=== PATIENT | female | born 2000 | race Caucasian/White ===

== ENCOUNTER 2021-05-29 10:16 | Emergency (ER) | payer BC, SELFPAY ==
[2021-05-29 11:13] VITALS: BP 139/90; PULSE 73; RESP 20; TEMP 36.5; O2SAT 98; BMI 40.3
--- NOTE | 2021-05-29 11:42 | USR_ITS ---
PROCEDURE INFORMATION: Exam: US Pelvis, Transvaginal Exam date and time: 05/29/2021 11:42 AM Age: 21 years old Clinical indication: Pelvic pain; Additional info: Eval for pelvic cramps TECHNIQUE: Imaging protocol: Real-time transvaginal pelvic ultrasound with image documentation. Transvaginal imaging was used for better evaluation of the endometrium, adnexa, and/or cervix. COMPARISON: No relevant prior studies available. FINDINGS: Uterus: Uterus measures 6.6 x 3.2 by 4.5 cm. Endometrium measures 6 mm in diameter. Subcentimeter nabothian cysts. Right ovary/adnexa: Right ovary measures 3.2 x 2.2 x 3.1 cm. Right ovarian blood flow demonstrated. Left ovary/adnexa: Poorly visualized left ovary measures 3.9 x 2.3 x 1.4 cm. Intraperitoneal space: No significant free fluid. US/US transvaginal [id number] IMPRESSION: No acute sonographic abnormality in the visualized pelvis.
--- NOTE | 2021-05-29 12:00 | W.ED.GENADLT ---
HPI - General Adult General: Chief complaint: Urogenital-Female Stated complaint: HEAVY VAG BLEEDING AND PAIN, H/A, ABD PAIN Time Seen by Provider: 05/29/21 11:41 History of Present Illness: HPI narrative: Patient is a 21-year-old female with a history of regular periods who presents the emergency room with worsening pelvic cramps/lower abdominal pain over the last 2 months now with heavy bleeding x2 days. Patient tells me she has irregular periods. Most recently, her period started 2 days ago initially with passage of clots and that with heavy bleeding. Patient reports going through pads yesterday and 5 pads today. Patient denies any urinary symptoms, melena/medic easier. Patient reports that her cramps has never been this painful until recently. Patient recently moved here from [place] is looking to establish care with a OUTREACH REP provider. Patient denies any fever or chills, cough, runny nose sore throat. Patient reports nasal congestion secondary to seasonal allergy she currently has. No other abdominal complaints including nausea/vomiting, or diarrhea. Sexually active with 1 partner. Patient reports mild discharge. She does not think this discharge is different from her usual Onset: 2 months of pelvic cramps, 2 days of vaginal bleeding Duration:ongoing Location:home Severity:moderate Associated symptoms: Deny chest pain, dyspnea, nausea, rash, palpitations or vomiting Review of Systems Const: Denies: fever(s) or chills Eyes: Denies: change in vision ENMT: Denies: mouth pain Card: Denies: chest pain or palpitations Resp: Denies: dyspnea or non-productive cough GI: Denies: abdominal pain, nausea, vomiting or diarrhea : Reports: irregular period, pelvic pain and other (+vaginal bleeding and passage of clots); Denies: dysuria Musc: Denies: extremity pain Skin/Breast: Denies: rash or new lesions Neuro: Denies: weakness in extremities Psych: Reports: other (Normal mood) Dontae/Lymph: Denies: easy bruising PFSH ED PFSH: Medical History Allergic rhinitis due to allergen Social History Smoking and tobacco status: current every day smoker Alcohol intake: current Female Reproductive History: Date of last menstrual period: 04/10/21 Physical Exam Const: COMMON NORMALS: alert HENMT: COMMON NORMALS: atraumatic HEAD & SCALP: atraumatic MOUTH: moist mucous membranes not abnormal Eye: COMMON NORMALS: EOMs intact bilaterally and conjunctivae normal CONJUNCTIVA: Yes conjunctivae normal Neck/C-Spine: COMMON NORMALS: full ROM and supple Resp: COMMON NORMALS: normal respiratory effort and clear to auscultation bilaterally AUSCULTATION: clear to auscultation bilaterally Cardio: COMMON NORMALS: regular rate RATE: regular rate GI: COMMON NORMALS: Soft to palpation and non-tender PALPATION: Yes Soft to palpation : OTHER: Exam supervised by Adablerto REED. External genitalia wnl. No erythema around cervical os, os closed, no discharge, +mild clots of blood from the cervial os without any active bleeding or pooling of blood. No CMT, +mild L adnexal tenderness. Extremity: COMMON NORMALS: full ROM Neuro: SENSORIUM/ORIENTATION: Yes alert MOTOR EXAM: No Abnormal motor strength present and Other motor observations present (no focal motor deficits) Psych: COMMON NORMALS: speech normal SPEECH: Yes normal speech MOOD & AFFECT: Yes euthymic mood Course Vital Signs: Vital signs: Vital Signs Temperature 97.7 F 05/29/21 11:13 Pulse Rate 68 05/29/21 12:49 Respiratory Rate 16 05/29/21 12:49 Blood Pressure 107/69 05/29/21 12:49 Pulse Oximetry 100 05/29/21 12:49 MDM - General Adult MDM Narrative: Medical decision making narrative: 21-year-old female presenting to the emergency room with worsening pelvic cramps and heavy vaginal bleeding. On exam, patient has no signs of active vaginal bleeding. There is mild clot observed from the cervical os. Patient is otherwise noted to be mildly tachycardic on arrival has improved without any intervention she appears to be stable today at 13.7. Vaginal ultrasound is negative for any acute findings. HCG beta negative. I do not have any suspicion for acute active heavy vaginal period. UA is consistent with possible UTI given pelvic pain, will treat empirically I have given patient follow up with our protective services case worker to be seen by our outpatient OUTREACH REP provider. Patient aware of a call from our protective services case worker to schedule for appointment(s) and verbalizes understanding of the importance of following up. Rx tylenol PRN pain, zofran ODT and keyon PRN nausea/vomiting, cephalexin BID x 7 days for UTI Disposition: Discharge. Patient counseled regarding diagnostic impression, treatment plan. Patient given ED strict return precautions to return for continuation, worsening, or development of new symptoms. Instructed to f/u w/ PCP regarding symptoms today. Patient verbalized understanding. Lab Data: Labs: Lab Results 05/29/21 05/29/21 05/29/21 12:30 12:30 13:30 WBC 7.6 10^3/uL 10^3/ uL (4.0-10.0) RBC 4.82 10^6/uL 10^6 /uL (4.1-5.3) Hgb 13.7 g/dL g/dL (11.5-15.3) Hct 40.8 % % (37.0-47.0) MCV 84.6 fl fl (81-99) MCH 28.4 pg pg (28.0-34.0) MCHC 33.6 g/dL g/dL (30.0-36.0) RDW 12.5 % % (12.1-15.1) Plt Count 237 10^3/cmm 10^3 /cmm (130-400) MPV 10.8 fL H fL (7.4-10.4) Neut % (Auto) 66.7 % % Lymph % (Auto) 24.7 % % [place] % (Auto) 6.2 % % Eos % (Auto) 1.7 % % Baso % (Auto) 0.4 % % Neut # (Auto) 5.09 10^3/uL 10^3 /uL (1.8-7.7) Lymph # (Auto) 1.9 10^3/uL 10^3/ uL (0.8-4.8) [place] # (Auto) 0.5 10^3/uL 10^3/ uL (0.2-0.9) Eos # (Auto) 0.1 10^3/uL 10^3/ uL (0.0-0.8) Baso # (Auto) 0.0 10^3/uL 10^3/ uL (0.0-0.1) Nucleated RBC % (a uto) 0 % % Nucleated RBCs # 0.0 /100WBC /100W BC Sodium 139 mmol/L mmol/L (136-145) Potassium 4.1 mmol/L mmol/L (3.5-5.1) Chloride 104 mmol/L mmol/L (98-107) Carbon Dioxide 20 mmol/L L mmol/ L (22-29) Anion Gap 19.1 H (5-19) BUN 8 mg/dL mg/dL (6-20) Creatinine 0.7 mg/dL mg/dL (0.5-0.9) GFR Calculation 103.7 mL/min mL/m in (90-130) Glucose 96 mg/dL mg/dL (65-115) Calculated Osmolal ity 286 mOsm/kg mOsm/ kg (285-295) Calcium 10.1 mg/dL mg/dL (8.5-10.5) Total Bilirubin 0.6 mg/dL mg/dL (0.15-1.2) AST 47 U/L H U/L (0-32) ALT 35 U/L H U/L (0-33) Alkaline Phosphata se 78 IU/L IU/L (35-105) Total Protein 8.0 g/dL g/dL (6.6-8.7) Albumin 4.4 g/dL g/dL (3.5-5.2) Globulin 3.6 g/dL g/dL (1.3-4.6) Lipase 73 U/L H U/L (13-60) HCG, Qual Negative (Negative) Urine Color Urine Appearance Urine pH Ur Specific Gravit y Urine Protein Urine Glucose (UA) Urine Ketones Urine Blood Urine Nitrate Urine Bilirubin Prot Sulfosalicyli c Acd Urine Urobilinogen Ur Leukocyte Felicitas ase Urine RBC Urine WBC Ur Squamous Epith Cells Amorphous Sediment Urine Bacteria 05/29/21 05/29/21 13:30 13:45 WBC RBC Hgb Hct MCV MCH MCHC RDW Plt Count MPV Neut % (Auto) Lymph % (Auto) [place] % (Auto) Eos % (Auto) Baso % (Auto) Neut # (Auto) Lymph # (Auto) [place] # (Auto) Eos # (Auto) Baso # (Auto) Nucleated RBC % (a uto) Nucleated RBCs # Sodium Potassium Chloride Carbon Dioxide Anion Gap BUN Creatinine GFR Calculation Glucose Calculated Osmolal ity Calcium Total Bilirubin AST ALT Alkaline Phosphata se Total Protein Albumin Globulin Lipase HCG, Qual Negative (Negative) Urine Color Dark yellow (Yellow) Urine Appearance Hazy A (CLEAR) Urine pH 8 H (5-7) Ur Specific Gravit y 1.010 (1.005-1.030) Urine Protein Neg (Negative) Urine Glucose (UA) Norm (Normal) Urine Ketones 1+ H (Negative) Urine Blood 3+ H (Negative) Urine Nitrate Negative (Negative) Urine Bilirubin 1+ H (Negative) Prot Sulfosalicyli c Acd Positive (Negative) Urine Urobilinogen 4 mg/dL H mg/dL (Negative) Ur Leukocyte Felicitas ase Trace H (Negative) Urine RBC 15-25 /hpf H /hpf (0-2) Urine WBC 5-10 /hpf H /hpf (0-5) Ur Squamous Epith Cells 5-10 /hpf H /hpf (0-5) Amorphous Sediment Not Reportable Urine Bacteria 1+ /hpf H /hpf (NONE) Imaging Data^: Other Imaging: Radiologist's impression: [address] [id number] ReportSigned Patient: Nasima Turner #: [id number]: 2000Acct#:[id number]/Sex: 21 / FADM Date: 05/29/21Loc: ERRoom/Bed:Attending Dr: Ordering Provider/Ordering MD: Mojgan Mix MD Date of Service: 05/29/21 Procedure(s): US transvaginal [id number] Accession Number(s): [id number] Report Number: [id number] PROCEDURE INFORMATION: Exam: US Pelvis, Transvaginal Exam date and time: 05/29/2021 11:42 AM Age: 21 years old Clinical indication: Pelvic pain; Additional info: Eval for pelvic cramps TECHNIQUE: Imaging protocol: Real-time transvaginal pelvic ultrasound with image documentation. Transvaginal imaging was used for better evaluation of the endometrium, adnexa, and/or cervix. COMPARISON: No relevant prior studies available. FINDINGS: Uterus: Uterus measures 6.6 x 3.2 by 4.5 cm. Endometrium measures 6 mm in diameter. Subcentimeter nabothian cysts. Right ovary/adnexa: Right ovary measures 3.2 x 2.2 x 3.1 cm. Right ovarian blood flow demonstrated. Left ovary/adnexa: Poorly visualized left ovary measures 3.9 x 2.3 x 1.4 cm. Intraperitoneal space: No significant free fluid. US/US transvaginal [id number] IMPRESSION: No acute sonographic abnormality in the visualized pelvis. Dictated By:Travis Patel MDSigned By:Travis Patel MDSigned Date/Time:05/29/21 1355DD/ 1142 Discharge Plan Discharge Patient Disposition: Home Clinical Impression: Pelvic cramping, Abnormal vaginal bleeding, UTI (urinary tract infection) Condition: Stable Prescriptions: New Zofran 4 mg tablet 4 mg PO TID PRN (Reason: nausea and vomiting) 4 Days Qty: 12 RF: 0 acetaminophen 500 mg tablet 500 mg PO Q6H PRN (Reason: pain) 5 Days Qty: 20 RF: 0 keyon extract 250 mg capsule 250 mg PO QID PRN (Reason: nausea and vomiting) 8 Days Qty: 32 RF: 0 cephalexin 500 mg capsule 500 mg PO BID 7 Days Qty: 14 RF: 0 Discharge Orders: Discharge ED (Routine); Ordered 05/29/21 Ordered By: Mojgan Mix Discharge Diet: Advance as tolerated Discharge Activity: Increase activity as tolerated Patient Instructions: Abnormal (Dysfunctional) Uterine Bleeding (ED) Activity Restrictions/Additional Instructions: Our protective services case worker will have you follow-up with vaginal bleeding and cramps in the next few days. You would be expected to have a phone call with our protective services case worker who will put you on the schedule. Please come back to the emergency room any significant nausea/vomiting, fever/chill, diarrhea worsening abdominal pain, or any significantly worsening of cramps or vaginal bleeding Coding Level of Care Code ED [facility] Fwd Exam Comprehensive
[2021-05-29] MEDS: metoclopramide 5 mg/mL SDV 2 mL IVP (12:44)
[2021-05-29] MEDS: acetaminophen 500 mg Tablet 1000 MG PO (12:44)
[2021-05-29 12:48] LABS: Basophils % 0.4 %; Eosinophils # 0.1 10^3/uL (0.0-0.8); Eosinophils % 1.7 %; Hematocrit 40.8 % (37.0-47.0); Hemoglobin 13.7 g/dL (11.5-15.3); Lymphocytes # 1.9 10^3/uL (0.8-4.8); Lymphocytes % 24.7 %; Mean Corpuscular HGB Conc 33.6 g/dL (30.0-36.0); Mean Corpuscular Hemoglobin 28.4 pg (28.0-34.0); Mean Corpuscular Volume 84.6 fl (81-99); Mean Platelet Volume 10.8 fL (7.4-10.4); Monocytes # 0.5 10^3/uL (0.2-0.9); Monocytes % 6.2 %; Neutrophils # 5.09 10^3/uL (1.8-7.7); Neutrophils % 66.7 %; Nucleated Red Blood Cells % 0 %; Platelet Count 237 10^3/cmm (130-400); Red Blood Count 4.82 10^6/uL (4.1-5.3); Red Cell Distribution Width 12.5 % (12.1-15.1); White Blood Count 7.6 10^3/uL (4.0-10.0)
[2021-05-29 12:49] VITALS: BP 107/69; PULSE 68; RESP 16; O2SAT 100
[2021-05-29 13:05] LABS: Alanine Aminotransferase 35 U/L (0-33); Albumin Level 4.4 g/dL (3.5-5.2); Alkaline Phosphatase 78 IU/L (35-105); Anion Gap 19.1 (5-19); Aspartate Amino Transferase 47 U/L (0-32); Blood Urea Nitrogen 8 mg/dL (6-20); Calcium 10.1 mg/dL (8.5-10.5); Carbon Dioxide 20 mmol/L (22-29); Chloride 104 mmol/L (98-107); Globulin 3.6 g/dL (1.3-4.6); Glomerular Filtration Rate 103.7 mL/min (90-130); Glucose 96 mg/dL (65-115); Lipase 73 U/L (13-60); Osmolality Calculated 286 mOsm/kg (285-295); Potassium 4.1 mmol/L (3.5-5.1); Sodium 139 mmol/L (136-145); Total Bilirubin 0.6 mg/dL (0.15-1.2)
[2021-05-29 13:42] LABS: HCG Qualitative Urine. Negative (Negative)
[2021-05-29 13:54] LABS: Bilirubin Urine 1+ (Negative); Blood Urine 3+ (Negative); Glucose Urine UA Norm (Normal); Ketones Urine 1+ (Negative); Nitrate Urine Negative (Negative); Protein Urine Neg (Negative); Sulfosalicylic Acid Urine Positive (Negative); Urine Appearance Hazy (CLEAR); Urine Color Dark Yellow (Yellow); Urobilinogen Urine 4 mg/dL (Negative); pH Urine 8 (5-7)
[2021-05-29 13:55] LABS: Add Urine Culture? Yes; Add Urine Microscopic? YES; Bacteria Urine 1+ /hpf; Leukocyte Esterase Urine Trace (Negative); RBC Urine 15-25 /hpf (0-2)
[2021-05-29 14:00] VITALS: BP 128/70; PULSE 68; RESP 16; O2SAT 98
[2021-05-29 14:07] LABS: HCG, Serum Qual Negative (Negative)
--- NOTE | 2021-05-30 08:57 | DCPLANNER ---
Addendum entered by Apryl Smyth 07/29/21 09:08: Patient had an appointment scheduled with [facility] - appointment was cancelled. Addendum entered by Apryl Smyth 06/17/21 08:17: Patient has a follow up appointment scheduled for July at 3:[address] Collado at [facility]. Clinic will call patient with appointment information. Original Note: pool manager had message to schedule a follow up appointment for patient with [facility]. pool manager called the [facility], gave clinic patients information. Patients information will be printed and reviewed. Clinic will call patient with appointment information.
== END 2021-05-29 14:26 | disposition home or self-care (01) ==
PROVIDERS: Emergency Medicine; Nurse Practitioner Family; Emergency Provider Emergency Medicine
DX: N93.9 Abnormal uterine and vaginal bleeding, unspecified (principal); R10.2 Pelvic and perineal pain; N39.0 Urinary tract infection, site not specified; F17.210 Nicotine dependence, cigarettes, uncomplicated
CPT/HCPCS: 36415; 76830; 80053; 81001; 81025; 83690; 84703; 85025; 87086; 96374; 99284; J2765

== ENCOUNTER 2021-10-08 09:49 | Emergency (ER) | payer SELFPAY ==
--- NOTE | 2021-10-08 10:01 | W.ED.GENADLT ---
HPI - General Adult General: Chief complaint: Back Pain/Injury Stated complaint: Pain everywhere, SOB, Fever, Cough Time Seen by Provider: 10/08/21 09:53 Source: patient Mode of arrival: ambulatory Limitations: no limitations History of Present Illness: 21-year-old female presents emergency room complaining of generalized pain everywhere shortness of breath cough she has not had any diarrhea. She localizes the worst of her pain into her low back however does not particularly radiate in a radicular fashion to her extremities she denies any dysuria urgency or frequency she has a little bit of cough and shortness of breath no cough has been nonproductive. No chest pain. No vomiting or diarrhea. Onset (ago): minute(s) Severity: moderate Quality: aching Pain Consistency: constant Associated symptoms: Deny chest pain, confusion, cough, diaphoresis, decreased appetite, dyspnea, fevers/chills, headache(s), malaise, nausea, rash, palpitations, seizures, short of breath, syncope, vomiting or weakness Treatments prior to arrival: none Review of Systems Const: Reports: fever(s), chills, change in appetite and fatigue; Denies: malaise or diaphoresis ENMT: Denies: throat pain, ear or mastoid pain, nasal discharge or nasal congestion Card: Denies: chest pain, palpitations or syncope Resp: Denies: dyspnea GI: Denies: abdominal pain, nausea or vomiting : Denies: flank pain, difficulty voiding, dysuria, urinary frequency or urinary urgency Skin/Breast: Denies: rash Neuro: Denies: headache(s) or confusion PFS ED PFSH: Medical History Allergic rhinitis due to allergen Social History Smoking and tobacco status: current every day smoker Alcohol intake: current Female Reproductive History: Date of last menstrual period: 04/10/21 Physical Exam Const: GENERAL APPEARANCE: cooperative and comfortable ORIENTATION/CONSCIOUSNESS: Yes awake, Yes oriented to person, Yes oriented to place and Yes oriented to time HENMT: COMMON NORMALS: normocephalic, atraumatic and hearing grossly normal bilaterally HEAD & SCALP: normocephalic and atraumatic Neck/C-Spine: COMMON NORMALS: no JVD Resp: COMMON NORMALS: normal respiratory effort, No retractions, No use of accessory muscles and clear to auscultation bilaterally AUSCULTATION: clear to auscultation bilaterally Cardio: COMMON NORMALS: no JVD, regular rate, regular rhythm and No murmurs present (Cardio) RATE: regular rate RHYTHM: regular rhythm GI: COMMON NORMALS: No hepatosplenomegaly present AUSCULTATION: Yes normoactive bowel sounds PALPATION: Yes Tenderness to palpation present (GI) (Mild diffuse), No Guarding due to palpation present (GI) and Yes No hepatosplenomegaly present Extremity: COMMON NORMALS: normal to inspection, capillary refill normal, no clubbing, cyanosis or edema, no calf tenderness and no pedal edema OTHER: Straight leg raising is negative Neuro: SENSORIUM/ORIENTATION: Yes oriented to person, Yes oriented to place and Yes oriented to time Skin: COMMON NORMALS: no rashes or lesions noted GENERAL SKIN EXAM: no rashes or lesions noted Course Vital Signs: Vital signs: Vital Signs Temperature 100.5 F H 10/08/21 11:30 Pulse Rate 106 H 10/08/21 15:49 Respiratory Rate 20 H 10/08/21 15:49 Blood Pressure 132/86 10/08/21 15:49 Pulse Oximetry 97 10/08/21 15:49 [facility] - General Adult Medical Decision Making Exam is normal. Beta-hCG came back as positive serum quant done was in the 80s. CT of the abdomen was canceled ultrasound was done instead. Ultrasound is unremarkable patient is feeling much better COVID swab and respiratory antigen panel was negative. Chest x-ray was also negative. Patient declined vaginal ultrasound. given her beta-hCG is so low, it is unlikely we would see anything intrauterine. Organ to go ahead and discharge the patient home with suspect she may have a little viral infection she is feeling much better. We will help her get set up for a repeat beta-hCG in 5 days and establish with a primary care order placed with case management. Medical Records I reviewed the patient's medical records. Lab Data I reviewed the patient's lab results. : 10/08/21 11:39 10/08/21 11:39 Radiology Impressions Chest X-Ray 10/08/21 11:42 IMPRESSION: No acute findings. Abdomen Ultrasound 10/08/21 12:45 IMPRESSION: Cholecystectomy, negative for acute abnormality. Laboratory Results WBC 7.8 10^3/uL (4.0-10.0) 10/08/21 11:39 RBC 5.24 10^6/uL (4.1-5.3) 10/08/21 11:39 Hgb 14.6 g/dL (11.5-15.3) 10/08/21 11:39 Hct 43.0 % (37.0-47.0) 10/08/21 11:39 MCV 82.1 fl (81-99) 10/08/21 11:39 MCH 27.9 pg (28.0-34.0) L 10/08/21 11:39 MCHC 34.0 g/dL (30.0-36.0) 10/08/21 11:39 RDW 12.3 % (12.1-15.1) 10/08/21 11:39 Plt Count 251 10^3/cmm (130-400) 10/08/21 11:39 MPV 10.8 fL (7.4-10.4) H 10/08/21 11:39 Neut % (Auto) 82.0 % 10/08/21 11:39 Lymph % (Auto) 11.2 % 10/08/21 11:39 [place] % (Auto) 5.9 % 10/08/21 11:39 Eos % (Auto) 0.1 % 10/08/21 11:39 Baso % (Auto) 0.5 % 10/08/21 11:39 Neut # (Auto) 6.40 10^3/uL (1.8-7.7) 10/08/21 11:39 Lymph # (Auto) 0.9 10^3/uL (0.8-4.8) 10/08/21 11:39 [place] # (Auto) 0.5 10^3/uL (0.2-0.9) 10/08/21 11:39 Eos # (Auto) 0.0 10^3/uL (0.0-0.8) 10/08/21 11:39 Baso # (Auto) 0.0 10^3/uL (0.0-0.1) 10/08/21 11:39 Nucleated RBC % (auto) 0 % 10/08/21 11:39 Nucleated RBCs # 0.0 /100WBC 10/08/21 11:39 Sodium 134 mmol/L (136-145) L 10/08/21 11:39 Potassium 3.6 mmol/L (3.5-5.1) 10/08/21 11:39 Chloride 98 mmol/L (98-107) 10/08/21 11:39 Carbon Dioxide 21 mmol/L (22-29) L 10/08/21 11:39 Anion Gap 18.6 (5-19) 10/08/21 11:39 BUN 6 mg/dL (6-20) 10/08/21 11:39 Creatinine 0.9 mg/dL (0.5-0.9) 10/08/21 11:39 GFR Calculation 77.6 mL/min (90-130) L 10/08/21 11:39 Glucose 104 mg/dL (65-115) 10/08/21 11:39 Calculated Osmolality 276 mOsm/kg (285-295) L 10/08/21 11:39 Calcium 9.7 mg/dL (8.5-10.5) 10/08/21 11:39 Total Bilirubin 0.6 mg/dL (0.15-1.2) 10/08/21 11:39 AST 12 U/L (0-32) 10/08/21 11:39 ALT 9 U/L (0-33) 10/08/21 11:39 Alkaline Phosphatase 80 IU/L (35-105) 10/08/21 11:39 Total Protein 8.8 g/dL (6.6-8.7) H 10/08/21 11:39 Albumin 4.4 g/dL (3.5-5.2) 10/08/21 11:39 Globulin 4.4 g/dL (1.3-4.6) 10/08/21 11:39 Lipase 41 U/L (13-60) 10/08/21 11:39 HCG, Qual Positive (Negative) H 10/08/21 11:39 Ser , Semi-Qnt 81.91 mIU/mL 10/08/21 11:39 Urine Color Yellow (Yellow) 10/08/21 10:12 Urine Appearance Sl hazy (CLEAR) 10/08/21 10:12 Urine pH 7 (5-7) 10/08/21 10:12 Ur Specific [place] 1.005 (1.005-1.030) 10/08/21 10:12 Urine Protein Neg (Negative) 10/08/21 10:12 Urine Glucose (UA) Norm (Normal) 10/08/21 10:12 Urine Ketones 1+ (Negative) H 10/08/21 10:12 Urine Blood Neg (Negative) 10/08/21 10:12 Urine Nitrate Negative (Negative) 10/08/21 10:12 Urine Bilirubin Neg (Negative) 10/08/21 10:12 Urine Urobilinogen 1 mg/dL (Negative) H 10/08/21 10:12 Ur Leukocyte Esterase 1+ (Negative) H 10/08/21 10:12 Urine RBC None /hpf (0-2) 10/08/21 10:12 Urine WBC 10-15 /hpf (0-5) H 10/08/21 10:12 Ur Squamous Epith Cells 15-25 /hpf (0-5) H 10/08/21 10:12 Ur Transition Epith Cell 0-4 /hpf 10/08/21 10:12 Amorphous Sediment Not Reportable 10/08/21 10:12 Urine Bacteria 2+ /hpf (NONE) H 10/08/21 10:12 Urine Mucus 2+ /hpf 10/08/21 10:12 Coronavirus 229E (PCR) Not detected (NOT DETECT) 10/08/21 11:49 SARS-CoV-2 (PCR) Not detected (NOT DETECT) 10/08/21 11:49 Discharge Plan Discharge Patient Disposition: Home Clinical Impression: Fever, Condition: Stable Prescriptions: New vit-iron fum-folic ac 65 mg iron- 1 mg tablet 1 tab PO DAILY Qty: 90 0RF Rx Instructions: May substitute any vitamin with iron and folic acid Discharge Orders: Discharge ED (Routine); Ordered 10/08/21 Ordered By: Bello Kendall Discharge Diet: Usual diet Discharge Activity: Increase activity as tolerated Patient Instructions: Opioid Safety Activity Restrictions/Additional Instructions: Case management will help make arrangements for you to have a follow-up beta-hCG and establish with a primary care physician. Coding Level of Care Code ED [facility] [facility] for [facility]g Fwd Exam Comprehensive
[2021-10-08 10:03] VITALS: BP 132/86; PULSE 106; RESP 20; TEMP 38.1; O2SAT 97; BMI 37.9
[2021-10-08 10:37] LABS: Urine Color Yellow (Yellow)
[2021-10-08 10:38] LABS: Bilirubin Urine Neg (Negative); Blood Urine Neg (Negative); Glucose Urine UA Norm (Normal); Ketones Urine 1+ (Negative); Nitrate Urine Negative (Negative); Protein Urine Neg (Negative); Specific Gravity, Urine 1.005 (1.005-1.030); Urine Appearance SL Hazy (CLEAR); Urobilinogen Urine 1 mg/dL (Negative); pH Urine 7 (5-7)
[2021-10-08 10:39] LABS: Add Urine Microscopic? YES; Leukocyte Esterase Urine 1+ (Negative)
[2021-10-08 10:44] LABS: Add Urine Culture? No; Bacteria Urine 2+ /hpf; Mucus Urine 2+ /hpf; Squamous Epithelial Cell Urine 15-25 /hpf (0-5); Transitional Epi Cells Urine 0-4 /hpf
[2021-10-08 11:30] VITALS: BP 132/86; PULSE 106; RESP 20; TEMP 38.1; O2SAT 97
--- NOTE | 2021-10-08 11:42 | XRR_ITS ---
PROCEDURE INFORMATION: Exam: XR Chest Exam date and time: 10/08/2021 1:02 PM Age: 21 years old Clinical indication: Cough and dyspnea; Additional info: Dyspnea/cough TECHNIQUE: Imaging protocol: XR of the chest. Views: 1 view. COMPARISON: No relevant prior studies available. FINDINGS: Lungs: Unremarkable. No consolidation. Pleural spaces: Unremarkable. No pleural effusion. No pneumothorax. Heart/Mediastinum: Unremarkable. No cardiomegaly. Bones/joints: Unremarkable. XR/XR chest 1V portable [id number] IMPRESSION: No acute findings.
[2021-10-08 12:05] LABS: Alanine Aminotransferase 9 U/L (0-33); Albumin Level 4.4 g/dL (3.5-5.2); Alkaline Phosphatase 80 IU/L (35-105); Anion Gap 18.6 (5-19); Aspartate Amino Transferase 12 U/L (0-32); Blood Urea Nitrogen 6 mg/dL (6-20); Calcium 9.7 mg/dL (8.5-10.5); Carbon Dioxide 21 mmol/L (22-29); Chloride 98 mmol/L (98-107); Globulin 4.4 g/dL (1.3-4.6); Glomerular Filtration Rate 77.6 mL/min (90-130); Glucose 104 mg/dL (65-115); HCG, Serum Qual Positive (Negative); Lipase 41 U/L (13-60); Osmolality Calculated 276 mOsm/kg (285-295); Potassium 3.6 mmol/L (3.5-5.1); Sodium 134 mmol/L (136-145); Total Bilirubin 0.6 mg/dL (0.15-1.2); Total Protein 8.8 g/dL (6.6-8.7)
[2021-10-08 12:13] LABS: Basophils % 0.5 %; Eosinophils % 0.1 %; Hemoglobin 14.6 g/dL (11.5-15.3); Lymphocytes # 0.9 10^3/uL (0.8-4.8); Lymphocytes % 11.2 %; Mean Corpuscular Hemoglobin 27.9 pg (28.0-34.0); Mean Corpuscular Volume 82.1 fl (81-99); Mean Platelet Volume 10.8 fL (7.4-10.4); Monocytes # 0.5 10^3/uL (0.2-0.9); Monocytes % 5.9 %; Nucleated Red Blood Cells % 0 %; Platelet Count 251 10^3/cmm (130-400); Red Blood Count 5.24 10^6/uL (4.1-5.3); Red Cell Distribution Width 12.3 % (12.1-15.1); White Blood Count 7.8 10^3/uL (4.0-10.0)
[2021-10-08] MEDS: sodium chloride 0.9% 1,000 ML 999 ML IV (12:19)
[2021-10-08] MEDS: ketorolac 30 mg/mL INJ IVP (12:19)
[2021-10-08] MEDS: ondansetron 2 mg/ML SDV 2 mL 4 MG IVP (12:20)
--- NOTE | 2021-10-08 12:45 | USR_ITS ---
PROCEDURE INFORMATION: Exam: US Abdomen Complete Exam date and time: 10/08/2021 1:52 PM Age: 21 years old Clinical indication: Other: Abd/low back pain; Abdominal pain; ; Additional info: Shortness of breath, fever, cough TECHNIQUE: Imaging protocol: Real-time ultrasound of the abdomen with image documentation. COMPARISON: US transvaginal [id number] 05/29/2021 12:20 PM FINDINGS: Liver: Normal. No mass. Gallbladder: Cholecystectomy. Biliary ducts: Normal. No stones. No dilation. Pancreas: Visualized pancreas is unremarkable. Right kidney: Normal. No mass. No hydronephrosis. Left kidney: Normal. No mass. No hydronephrosis. Spleen: Normal. No splenomegaly. Aorta: Normal. No aneurysm. Inferior vena cava: Normal. US/US abdomen complete* [id number] IMPRESSION: Cholecystectomy, negative for acute abnormality.
[2021-10-08 13:23] LABS: HCG Quantitative 81.91 mIU/mL
[2021-10-08 13:39] LABS: Adenovirus Not Detected (NOT DETECT); Chlamydia Pneumoniae Not Detected (NOT DETECT); Coronavirus 229E,HKU1,NL63,OC4 Not Detected (NOT DETECT); Human Metapneumovirus Not Detected (NOT DETECT); Human Rhinovirus/Enterovirus Not Detected (NOT DETECT); Influenza A Not Detected (NOT DETECT); Influenza A H1 Not Detected (NOT DETECT); Influenza A H1-2009 Not Detected (NOT DETECT); Influenza A H3 Not Detected (NOT DETECT); Influenza B Not Detected (NOT DETECT); Mycoplasma Pneumoniae Not Detected (NOT DETECT); Parainfluenza Virus Type 1 Not Detected (NOT DETECT); Parainfluenza Virus Type 2 Not Detected (NOT DETECT); Parainfluenza Virus Type 3 Not Detected (NOT DETECT); Parainfluenza Virus Type 4 Not Detected (NOT DETECT); Respiratory Syncytial Virus A Not Detected (NOT DETECT); Respiratory Syncytial Virus B Not Detected (NOT DETECT); SARS-COV-2 Not Detected (NOT DETECT)
[2021-10-08 15:49] VITALS: BP 132/86; PULSE 106; RESP 20; O2SAT 97
--- NOTE | 2021-10-10 14:10 | DCPLANNER ---
assistant credit manager had message to speak with patient about getting established with a primary care physician. assistant credit manager spoke with patient, she stated that she has an appointment scheduled with Dr. Masterson. No case management needs at this time.
== END 2021-10-08 15:51 | disposition home or self-care (01) ==
PROVIDERS: Emergency Provider Family Medicine
DX: O99.891 Other specified diseases and conditions complicating pregnancy (principal); R50.9 Fever, unspecified; R06.02 Shortness of breath; R52 Pain, unspecified; R05.9 Cough, unspecified; O99.331 Smoking (tobacco) complicating pregnancy, first trimester; F17.200 Nicotine dependence, unspecified, uncomplicated; Z3A.00 Weeks of gestation of pregnancy not specified
CPT/HCPCS: 71045; 76700; 80053; 81001; 83690; 84702; 84703; 85025; 87635; 96361; 96374; 96375; 99285; J1885; J2405; J2930; J7030

== ENCOUNTER 2022-05-31 14:46 | Outpatient (CLI) | payer BC, MEDICAID, SELFPAY ==
--- NOTE | 2022-05-31 | US_ITS ---
WS: [id number] LIMITED OBSTETRICAL ULTRASOUND HISTORY: LARGE FOR DATES, POLYHYDRAMNIOS COMPARISON: 01/31/2022 Presentation: Vertex. Cervix: Completely obscured by the head. Placenta: Posterior and fundal. No previa. Entire placenta cannot be well visualized. Grade: 2, approaching grade 3. HEART: FHR of 141 BPM. measurements: BPD = 9.5 cm = 38w5d; 91th percentile HC = 34.4 cm = 39w6d; 81st percentile AC = 36.1 cm = 40w0d; greater than 98th percentile FL = 7.8 cm = 39w5d; 94th percentile MELVIN: 21.0 cm, single vertical pocket 7.9 cm. EFW: 3874 g; greater than the 90th %. AGA by ultrasound: 39w4d SUSAN by ultrasound: 06/03/2022 1. Single intrauterine gestation of 39 weeks 4 days with an EDC of 06/03/2022. Appropriate since the second trimester ultrasound of 01/31/2022. 2. Fetus is measuring large for gestational age. 3. Estimated weight at greater than 90th percentile for age. 4. Abdominal subcutaneous, just greater than 98th percentile. BPD is greater than 91st percentile. 5. Increased placental age. Approaching grade 3. 6. Normal amniotic fluid index.
== END 2022-05-31 14:47 | disposition home or self-care (01) ==
LOC: RAD 14:48
PROVIDERS: Visit Provider Family Medicine
DX: O36.63X0 Maternal care for excessive fetal growth, third trimester, not applicable or unspecified (principal); Z3A.39 39 weeks gestation of pregnancy
CPT/HCPCS: 76816

== ENCOUNTER 2022-06-06 02:16 | Inpatient (IN) | payer BC, MEDICAID, SELFPAY ==
[2022-06-06] VITALS (118 sets, daily range): BP systolic 105–197; BP diastolic 55–136; PULSE 65–117; RESP 16–18; TEMP 35.9–36.8; O2SAT 89–100; BMI 49.0
[2022-06-06 02:10] LABS: Actim Prom Positive
[2022-06-06] MEDS: miSOPROStol 100 mcg tablet 25 MCG VAGINAL (02:59)
[2022-06-06] MEDS: ampicillin 2,000 MG in sodium chloride 0.9% (plus) 50 ML 100 MG IV (03:00)
[2022-06-06] MEDS: dextrose 5%-lactated ringers 1,000 ML 125 ML IV ×3 (03:02→17:49)
[2022-06-06 03:21] LABS: Basophils # 0.1 10^3/uL (0.0-0.1); Basophils % 0.3 %; Eosinophils # 0.2 10^3/uL (0.0-0.8); Hematocrit 32.4 % (37.0-47.0); Hemoglobin 10.3 g/dL (11.5-15.3); Lymphocytes # 2.5 10^3/uL (0.8-4.8); Lymphocytes % 14.8 %; Mean Corpuscular HGB Conc 31.8 g/dL (30.0-36.0); Mean Corpuscular Hemoglobin 25.9 pg (28.0-34.0); Mean Corpuscular Volume 81.4 fl (81-99); Mean Platelet Volume 10.4 fL (7.4-10.4); Monocytes % 6.2 %; Neutrophils # 12.74 10^3/uL (1.8-7.7); Neutrophils % 76.9 %; Nucleated Red Blood Cells % 0 %; Platelet Count 298 10^3/cmm (130-400); Red Blood Count 3.98 10^6/uL (4.1-5.3); Red Cell Distribution Width 13.4 % (12.1-15.1); White Blood Count 16.6 10^3/uL (4.0-10.0)
[2022-06-06 04:52] LABS: Add Urine Microscopic? NO; Charge for UA Resulting for Rev
[2022-06-06 05:04] LABS: Alanine Aminotransferase 13 U/L (0-33); Albumin Level 3.4 g/dL (3.5-5.2); Alkaline Phosphatase 211 U/L (35-105); Anion Gap 14.7 (5-19); Aspartate Amino Transferase 15 U/L (0-32); Blood Urea Nitrogen 8 mg/dL (6-20); Calcium 9.1 mg/dL (8.5-10.5); Carbon Dioxide 23 mmol/L (22-29); Chloride 101 mmol/L (98-107); Globulin 3.6 g/dL (1.3-4.6); Glomerular Filtration Rate 122.8 mL/min (90-130); Glucose 97 mg/dL (65-115); Osmolality Calculated 278 mOsm/kg (285-295); Potassium 3.7 mmol/L (3.5-5.1); Sodium 135 mmol/L (136-145); Total Bilirubin 0.3 mg/dL (0.15-1.2); Uric Acid 4.9 mg/dL (2.4-5.7)
[2022-06-06 05:09] LABS: Urine Creatinine 174 mg/dL (28-217)
[2022-06-06 05:10] LABS: Bilirubin Urine Neg (Negative); Blood Urine Neg (Negative); Glucose Urine UA Norm (Normal); Ketones Urine 1+ (Negative); Leukocyte Esterase Urine Negative (Negative); Nitrate Urine Negative (Negative); Protein Urine Neg (Negative); Urine Appearance SL Hazy (CLEAR); Urine Color Yellow (Yellow); Urobilinogen Urine Norm (Negative); pH Urine 6 (5-7)
[2022-06-06 05:11] LABS: UPRO/UCREAT Ratio 0.14 mg/mg CR; Urine Protein Random 25 mg/dL
[2022-06-06 06:35] LABS: Amphetamines Screen Urine Negative (Negative); Barbiturates Screen Urine Negative (Negative); Benzodiazepines Screen Urine Negative (Negative); Cocaine Screen Urine Negative (Negative); Opiate Screen Urine Negative (Negative); PCP Screen Urine Negative (Negative); THC Screen Urine Positive (Negative)
[2022-06-06] MEDS: ampicillin 1,000 MG in sodium chloride 0.9% (plus) 50 ML 100 MG IV ×4 (06:45→18:47)
[2022-06-06] MEDS: miSOPROStol 100 mcg tablet 25 MCG SUBLINGUAL (07:00)
[2022-06-06] MEDS: lactated ringers 1,000 ML 999 ML IV ×2 (09:20→10:16)
[2022-06-06] MEDS: fentaNYL 50 mcg/mL INJ 2mL IVP (09:36)
--- NOTE | 2022-06-06 10:35 | P.ANESASSM_ITS ---
Pre-Anesthetic Assessment Height/Weight: Height 1.7 m Weight 141.974 kg Temp Pulse Resp BP Pulse Ox O2 Del Method 97.5 F L 77 17 115/57 97 06/06/22 09:39 06/06/22 10:33 06/06/22 09:36 06/06/22 10:33 06/06/22 10:31 06/06/22 02:25 Familial anesthetic complications: none Was Beta Makenzie taken within 24 hours: N/A Was Clonidine taken within 24 hours: N/A Social No alcohol and No tobacco Exam alert, oriented x 3, clear to auscultation bilaterally and regular rate & rhythm Airway Submandibular: within normal limits Cervical ROM: within normal limits Mallampati: Class II Dentition: full Metabolic Morbid Obesity Anesthetic Plan ASA status: 2 Anesthesia: Regional (specify below) (Labor Epidural) Medications/Allergies Home Medications Medication Instructions Recorded Confirmed Last Taken Type vitamins-iron fumarate 65 1 tab PO DAILY #90 tabs 10/08/21 06/06/22 06/05/22 Rx mg iron-folic acid 1 mg tablet Allergies Allergy/AdvReac Type Severity Reaction Status Date / Time No Known Allergies Allergy Verified 06/06/22 02:02 Current Medications Generic Name Dose Route Start Last Admin Trade Name Freq PRN Reason Stop Dose Admin Fentanyl 25 - 100 mcg 06/06/22 09:20 06/06/22 09:36 Fentanyl 50 Mcg/Ml Inj 2ml IVP 25 mcg Q1H PRN Administration SEVERE PAIN Dextrose/Lactated Ringer's 1,000 mls @ 125 mls/hr 06/06/22 02:39 06/06/22 10:01 Dextrose 5%-Lactated Ringers IV Infused .Q8H PRN Infusion labor Ampicillin Sodium 1,000 mg/ 50 mls @ 100 mls/hr 06/06/22 07:00 06/06/22 07:15 Sodium Chloride IV Infused Q4H ALECIA Infusion Protocol Ropivacaine 200 mg in 100 mls @ 13 mls/hr 06/06/22 09:15 06/06/22 10:00 Naropin Premix EPIDURAL 13 mls/hr .Q7H42M ALECIA Administration Lactated Ringer's 1,000 mls @ 999 mls/hr 06/06/22 09:07 06/06/22 10:16 Lactated Ringers IV 999 mls/hr .Q1H1M PRN Administration See label comments PFSH Anesthesia Medical History Allergic rhinitis due to allergen Social History Smoking and tobacco status: current every day smoker Alcohol intake: current Female Reproductive History Date of last menstrual period: 04/10/21 : 1 Data Anesthesia 06/06/22 02:35 06/06/22 04:15 Short CBC 06/06/22 Range/Units 02:35 WBC 16.6 H (4.0-10.0) 10^3/uL Hgb 10.3 L (11.5-15.3) g/dL Hct 32.4 L (37.0-47.0) % MCV 81.4 (81-99) fl Plt Count 298 (130-400) 10^3/cmm Neut % (Auto) 76.9 % Neut # (Auto) 12.74 H (1.8-7.7) 10^3/uL BMP 06/06/22 04:15 Sodium 135 L Potassium 3.7 Chloride 101 Carbon Dioxide 23 BUN 8 Creatinine 0.6 Glucose 97 Calcium 9.1 Liver Function 06/06/22 Range/Units 04:15 Total Bilirubin 0.3 (0.15-1.2) mg/dL AST 15 (0-32) U/L ALT 13 (0-33) U/L Alkaline Phosphatase 211 H (35-105) U/L Albumin 3.4 L (3.5-5.2) g/dL Urine 06/06/22 Range/Units 04:15 Urine Color Yellow (Yellow) Urine Appearance Sl hazy A (CLEAR) Urine pH 6 (5-7) Ur Specific [place] 1.020 (1.005-1.030) Urine Protein Neg (Negative) Urine Glucose (UA) Norm (Normal) Urine Ketones 1+ H (Negative) Urine Nitrate Negative (Negative) Urine Bilirubin Neg (Negative) Ur Leukocyte Esterase Negative (Negative) Cardiac Studies: No Data to Display Anesthesia Procedures Epidural Time Out Performed: Yes Consents Signed: Procedure Consent Consent: requested by attending/covering physician, from patient, risks and benefits reviewed and patient agrees to proceed Lumbar Level: L3-L4 Epidural position: sitting Epidural procedure: sterile prep of area, 1% lidocaine to numb the area, 18 g needle, neg for paresthesia, test dose given, 1.5% xylocaine 1:200k epi, placed PCEA, no systemic response, sterile dressing applied and 0.2% Ropiavacaine @ mls/hr (13) Additional Comments: VIVI at 8cm, cath at 13cm, bolused 5mls of 2% lido/epi
[2022-06-06] MEDS: oxytocin 30 UNIT/500 ML BAG IV (11:08)
[2022-06-06] MEDS: hyDROXYzine 25 mg Capsule 50 MG PO (14:25)
--- NOTE | 2022-06-06 18:34 | ANES.PROC ---
Documented by User: Traci Mcgowan 06/06/22 18:36 Anesthesia Procedures Procedure/Date: 06/06/22 Epidural assessment and dosing Procedure Narrative: Pt c/o left sided pain with contractions 10/10- 100 mcg fentanyl via epidural and 2 ml 0.25% bupivicaine via epidural; 15 min later pain resolved and patient is resting comfortably. Documented by User: Marino Ellis 06/07/22 09:39 Anesthesia Procedures Procedure/Date: 06/07/22
[2022-06-06] MEDS: lidocaine 2% INJ 20 mL INJECTION (21:43)
--- NOTE | 2022-06-06 22:03 | PM.DELIVERY ---
Delivery Note: Date of delivery: June 06, 2022 Pre-delivery diagnoses: 22-year-old 1 female at 38 weeks estimated gestational age presenting with spontaneous rupture of membranes. Procedure: Spontaneous vaginal delivery Delivering Physician: Satnam Masterson Estimated blood loss (mL): 300 Pre-Delivery Course: The patient presented to the hospital with spontaneous rupture of membranes approximately 22 hours prior to delivery. Cytotec was placed x2. An epidural was placed. Pitocin augmentation occurred. She progressed to complete without difficulty. Delivery: DELIVERY: The patient progressed to complete without difficulty. She delivered a female with a weight of 9 pounds 7 ounces with Apgars of 8, 9. The baby's head was delivered from the DENNISE position. The baby was then noted to have shoulder dystocia. Gildardo, suprapubic pressure, and a corkscrew maneuver were then used to deliver the baby. The baby was then placed on the mother's abdomen. Total time of shoulder dystocia was less than 2 minutes. The cord was then clamped and cut about a minute after delivery there was no nuchal cord. There was no meconium. The placenta and 3 vessel cord were delivered intact shortly thereafter. The perineum and vaginal vault were carefully examined. A second-degree posterior midline tear was noted. 1% lidocaine was used to anesthetize the area. 3-0 Vicryl was then used to repair the area in usual fashion. Both the mother and the baby were in stable condition. Post-Delivery Status: Good A&P Assessment and plan (1) Spontaneous vaginal delivery: I anticipate routine care. I anticipate she will be going home within 1 to 2 days. (2) Shoulder dystocia, delivered: Coding Level of Care Code Acute Code for Chg Fwd Diagnoses Spontaneous vaginal delivery O80 Shoulder dystocia, delivered O66.0
[2022-06-07] VITALS (16 sets, daily range): BP systolic 112–159; BP diastolic 57–89; PULSE 76–118; RESP 16; TEMP 36.7–36.8; O2SAT 97–100
[2022-06-07] MEDS: HYDROcodone-acetaminophen 5-325 mg Tablet PO (00:39)
[2022-06-07] MEDS: benzocaine-menthol 78 gm Canister 1 SPRAY TOPICAL (00:40)
--- NOTE | 2022-06-07 08:27 | PM.OBGYPN ---
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 She is much less anxious. Her pain is well controlled. Her bleeding is within normal limits. She has been having some intermittent blood pressures that have been elevated. Those blood pressures are then followed by blood pressures that are in the 120s over 60s. Her blood pressure appears to have been very responsive to her anxiety. When she calms down her blood pressures appear to resolve as well. Labor: Station: 0 Amniotic Membrane Status: Ruptured Monitor Mode: External Contraction Pattern: Irregular Status: Category I Vitals/I&O/Wt Last Vital Signs Temp 98.2 F 06/07/22 03:15 Pulse 91 06/07/22 07:45 Resp 18 06/06/22 22:23 BP 121/68 06/07/22 07:45 Pulse Ox 99 06/06/22 10:56 O2 Del Method 06/06/22 02:25 06/06/22 06/07/22 06/07/22 22:59 06:59 14:59 Intake Total 1030.716 / 4067.549 0 / 4067.549 Output Total 1150 / 1150 500 / 1650 Balance -119.284 / 2917.549 -500 / 2417.549 Weight last 48 hrs Weight 313 lb Weight 313 lb Physical Exam Narrative: The patient is alert. She appears comfortable. Her heart has a regular rate and rhythm with no murmurs appreciated. Lungs are clear to auscultation bilaterally. Her fundus is firm and below the umbilicus. Urinary Catheter Management: Stevens Latex: Cath Placed During This Visit: yes Reason for Continuing Indwelling Catheter: Acute Urinary Retention or Obstruction Urinary Catheter Date of Insertion: 06/06/22 Urinary Catheter Time of Insertion: 11:00 Data 06/06/22 02:35 06/06/22 04:15 A&P Assessment and plan (1) Spontaneous vaginal delivery: I anticipate routine care. Because the patient's blood pressures are very labile and always appear to be responsive to her anxiety, no further intervention is needed at this time. I anticipate she will be discharged home tomorrow morning. Attestations Medical Necessity Statement*: Routine care. Coding Level of Care Code Acute Code for Chg Fwd Diagnoses Spontaneous vaginal delivery O80
[2022-06-07] MEDS: prenatal vitamin Capsule 1 CAP PO (08:36)
[2022-06-07] MEDS: ibuprofen 800 mg tablet PO ×3 (08:36→20:06)
[2022-06-07] MEDS: docusate sodium 100 mg Capsule PO (08:36)
--- NOTE | 2022-06-07 09:39 | ANE.PACU2 ---
Inpatient post-anesthesia follow up: Airway intact: Yes Vital signs: Temperature 98.2 F Pulse Rate 91 Respiratory Rate 18 Blood Pressure 121/68 Pulse Oximetry 99 Oxygen Delivery Me thod Room Air Oxygen Flow Rate Fraction of Inspir ed Oxygen Hydration adequate: Yes Nausea and vomiting: No Pain level: 2 Mental status: Baseline
[2022-06-07 10:38] LABS: Hematocrit 27.7 % (37.0-47.0); Hemoglobin 8.7 g/dL (11.5-15.3); Mean Corpuscular HGB Conc 31.4 g/dL (30.0-36.0); Mean Corpuscular Hemoglobin 25.7 pg (28.0-34.0); Mean Platelet Volume 10.4 fL (7.4-10.4); Platelet Count 266 10^3/cmm (130-400); Red Blood Count 3.38 10^6/uL (4.1-5.3); Red Cell Distribution Width 13.4 % (12.1-15.1); White Blood Count 18.9 10^3/uL (4.0-10.0)
[2022-06-08] MEDS: HYDROcodone-acetaminophen 5-325 mg Tablet PO (01:36)
[2022-06-08 04:17] VITALS: BP 117/69; PULSE 92; RESP 16
--- NOTE | 2022-06-08 08:03 | PM.OBGYDC ---
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 She was placed on Cytotec, then later on Pitocin. She progressed to complete and had a vaginal delivery which included a shoulder dystocia which was resolved within 90 seconds. She did have a second-degree posterior midline tear. Her course has been unremarkable. Her bleeding has been within normal limits. She is bottlefeeding. She has had some what she calls severe menstrual cramps . This morning she states her pain is doing well enough that she would like to go home. The patient also had some intermittent elevated blood pressures that seem to correspond with her anxiety. They are often followed by much lower numbered blood pressures when she calm down. Preeclamptic profile was within normal limits. Information Peripartum Data: Infant Delivery Method: Vaginal Physical Exam Narrative: The patient is alert. She appears comfortable. Her heart has a regular rate and rhythm with no murmurs appreciated. Lungs are clear to auscultation bilaterally. Her fundus is firm and below the umbilicus. Urinary Catheter Management: Stevens Latex: Cath Placed During This Visit: yes Reason for Continuing Indwelling Catheter: Acute Urinary Retention or Obstruction Urinary Catheter Date of Insertion: 06/06/22 Urinary Catheter Time of Insertion: 11:00 Discharge Data Studies Completed and Pending Laboratory Results WBC 18.9 10^3/uL (4.0-10.0) H 06/07/22 10:18 RBC 3.38 10^6/uL (4.1-5.3) L 06/07/22 10:18 Hgb 8.7 g/dL (11.5-15.3) L 06/07/22 10:18 Hct 27.7 % (37.0-47.0) L 06/07/22 10:18 MCV 82.0 fl (81-99) 06/07/22 10:18 MCH 25.7 pg (28.0-34.0) L 06/07/22 10:18 MCHC 31.4 g/dL (30.0-36.0) 06/07/22 10:18 RDW 13.4 % (12.1-15.1) 06/07/22 10:18 Plt Count 266 10^3/cmm (130-400) 06/07/22 10:18 MPV 10.4 fL (7.4-10.4) 06/07/22 10:18 Neut % (Auto) 76.9 % 06/06/22 02:35 Lymph % (Auto) 14.8 % 06/06/22 02:35 [place] % (Auto) 6.2 % 06/06/22 02:35 Eos % (Auto) 1.0 % 06/06/22 02:35 Baso % (Auto) 0.3 % 06/06/22 02:35 Neut # (Auto) 12.74 10^3/uL (1.8-7.7) H 06/06/22 02:35 Lymph # (Auto) 2.5 10^3/uL (0.8-4.8) 06/06/22 02:35 [place] # (Auto) 1.0 10^3/uL (0.2-0.9) H 06/06/22 02:35 Eos # (Auto) 0.2 10^3/uL (0.0-0.8) 06/06/22 02:35 Baso # (Auto) 0.1 10^3/uL (0.0-0.1) 06/06/22 02:35 Nucleated RBC % (auto) 0 % 06/06/22 02:35 Nucleated RBCs # 0.0 /100WBC 06/06/22 02:35 Sodium 135 mmol/L (136-145) L 06/06/22 04:15 Potassium 3.7 mmol/L (3.5-5.1) 06/06/22 04:15 Chloride 101 mmol/L (98-107) 06/06/22 04:15 Carbon Dioxide 23 mmol/L (22-29) 06/06/22 04:15 Anion Gap 14.7 (5-19) 06/06/22 04:15 BUN 8 mg/dL (6-20) 06/06/22 04:15 Creatinine 0.6 mg/dL (0.5-0.9) 06/06/22 04:15 GFR Calculation 122.8 mL/min (90-130) 06/06/22 04:15 Glucose 97 mg/dL (65-115) 06/06/22 04:15 Calculated Osmolality 278 mOsm/kg (285-295) L 06/06/22 04:15 Uric Acid 4.9 mg/dL (2.4-5.7) 06/06/22 04:15 Calcium 9.1 mg/dL (8.5-10.5) 06/06/22 04:15 Total Bilirubin 0.3 mg/dL (0.15-1.2) 06/06/22 04:15 AST 15 U/L (0-32) 06/06/22 04:15 ALT 13 U/L (0-33) 06/06/22 04:15 Alkaline Phosphatase 211 U/L (35-105) H 06/06/22 04:15 Total Protein 7.0 g/dL (6.6-8.7) 06/06/22 04:15 Albumin 3.4 g/dL (3.5-5.2) L 06/06/22 04:15 Globulin 3.6 g/dL (1.3-4.6) 06/06/22 04:15 Insulin-like GF I Positive 06/06/22 02:00 Urine Color Yellow (Yellow) 06/06/22 04:15 Urine Appearance Sl hazy (CLEAR) A 06/06/22 04:15 Urine pH 6 (5-7) 06/06/22 04:15 Ur Specific [place] 1.020 (1.005-1.030) 06/06/22 04:15 Urine Protein Neg (Negative) 06/06/22 04:15 Urine Glucose (UA) Norm (Normal) 06/06/22 04:15 Urine Ketones 1+ (Negative) H 06/06/22 04:15 Urine Blood Neg (Negative) 06/06/22 04:15 Urine Nitrate Negative (Negative) 06/06/22 04:15 Urine Bilirubin Neg (Negative) 06/06/22 04:15 Urine Urobilinogen Norm mg/dL (Negative) 06/06/22 04:15 Ur Leukocyte Esterase Negative (Negative) 06/06/22 04:15 U Random Total Protein 25 mg/dL 06/06/22 04:15 Urine Creatinine 174 mg/dL (28-217) 06/06/22 04:15 Protein/Creatinin Ratio 0.14 mg/mg CR 06/06/22 04:15 Urine Opiates Screen Negative ng/mL (Negative) 06/06/22 04:15 Ur Barbiturates Screen Negative ng/mL (Negative) 06/06/22 04:15 Ur Phencyclidine Scrn Negative ng/mL (Negative) 06/06/22 04:15 Ur Amphetamines Screen Negative ng/mL (Negative) 06/06/22 04:15 U Benzodiazepines Scrn Negative ng/mL (Negative) 06/06/22 04:15 Urine Cocaine Screen Negative ng/mL (Negative) 06/06/22 04:15 U Marijuana (THC) Screen Positive ng/mL (Negative) H 06/06/22 04:15 Vitals Last Vital Signs Temp 98.0 F 06/07/22 21:24 Pulse 92 06/08/22 04:17 Resp 16 06/08/22 04:17 BP 117/69 06/08/22 04:17 Pulse Ox 100 06/07/22 21:24 O2 Del Method 06/07/22 21:24 Discharge Plan Discharge Patient Disposition: Home Prescriptions: New ibuprofen 800 mg Tablet 800 mg PO TID Qty: 45 0RF Continued vit-iron fum-folic ac 65 mg iron- 1 mg tablet 1 tab PO DAILY Qty: 90 0RF Rx Instructions: May substitute any vitamin with iron and folic acid Discharge Orders: Discharge Order (Routine); Ordered 06/08/22 Ordered By: Satnam Masterson Referrals: Satnam Masterson MD [Physician] - 6 Weeks Discharge Diet: Usual diet Discharge Activity: Limit activity as instructed Patient Instructions: Opioid Safety 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
[2022-06-08] MEDS: ibuprofen 800 mg tablet PO (08:31)
[2022-06-08] MEDS: docusate sodium 100 mg Capsule PO (08:31)
[2022-06-08] MEDS: measles,mumps,rubella pf Vial (w/diluent) 0.5 ML SUBCUT (08:32)
[2022-06-08] MEDS: prenatal vitamin Capsule 1 CAP PO (08:32)
[2022-06-08 09:45] VITALS: BP 113/77; PULSE 87; RESP 16; TEMP 36.8; O2SAT 100
== END 2022-06-08 10:00 | disposition home or self-care (01) | DRG 807 ==
LOC: OPOB 02:16 → OBGYN 02:16
PROVIDERS: Admitting Provider Family Medicine; Visit Provider Family Medicine
DX: O66.0 Obstructed labor due to shoulder dystocia (principal); Z37.0 Single live birth; O99.344 Other mental disorders complicating childbirth; O70.1 Second degree perineal laceration during delivery; Z3A.38 38 weeks gestation of pregnancy; F41.9 Anxiety disorder, unspecified
CPT/HCPCS: 12345; 36415; 51702; 59025; 59409; 80053; 80306; 81003; 82570; 83986; 84112; 84156; 84550; 85025; 85027; 90707; 96372; 96374; 96376; 99211; J0290; J2590; J2795; J3010; J3490; J7120; J7121

== ENCOUNTER → 2023-04-23 17:43 | Outpatient (BNVA) | payer BC, MEDICAID, SELFPAY | PROVIDERS: Visit Provider Emergency Medicine | DX: J02.0 Streptococcal pharyngitis (principal) | CPT/HCPCS: 87880 ==

== ENCOUNTER → 2024-08-28 14:46 | Outpatient (BNVA) | payer BC, SELFPAY | PROVIDERS: Visit Provider Registered Nurse Neonatal Intensive Care | DX: N39.0 Urinary tract infection, site not specified (principal) | CPT/HCPCS: 81000 ==

== ENCOUNTER → 2024-09-30 09:28 | Outpatient (BNVA) | payer BC, SELFPAY | PROVIDERS: Visit Provider Nurse Practitioner Women's Health | DX: N91.2 Amenorrhea, unspecified (principal); N92.6 Irregular menstruation, unspecified; R53.83 Other fatigue; Z12.4 Encounter for screening for malignant neoplasm of cervix | CPT/HCPCS: 80053; 82306; 82670; 83001; 83036; 83525; 84146; 84402; 84403; 84439; 84443; 84481; 84702; 85025; 87624 ==

== ENCOUNTER → 2024-10-08 12:36 | Outpatient (BNVA) | payer BC, SELFPAY | PROVIDERS: Visit Provider Nurse Practitioner Women's Health | DX: N92.6 Irregular menstruation, unspecified (principal); R10.2 Pelvic and perineal pain | CPT/HCPCS: 76830 ==